=== PATIENT | male | born 1985 | race African-American/Black ===

== ENCOUNTER 2023-09-27 23:17 | Emergency (ER) | payer MEDICAID, OTHER ==
[~2023-09-27] VITALS: Ht 185.4 cm; Wt 79.2 kg
[2023-09-28] MEDS ORDERED: HYDR-4902 PO (02:17)
[2023-09-28] MEDS: BACITRACIN TOP OINT 1 UD PKG TOP ONE (02:48)
[2023-09-28 04:00] VITALS: BP 128/65; PULSE 67; RESP 20; TEMP 98.5; O2SAT 97
[2023-09-28] MEDS: HYDROcodone-ACET 5/325MG TAB PO ONE (04:08)
== END 2023-09-28 04:15 | disposition home or self-care (01) ==
LOC: ER 23:17
DX: S02.2XXA Fracture of nasal bones, initial encounter for closed fracture (principal); W18.39XA Other fall on same level, initial encounter; Y93.89 Activity, other specified; Y92.89 Other specified places as the place of occurrence of the external cause; Y99.8 Other external cause status
CPT/HCPCS: 70450; 70486